=== PATIENT | female | born 1965 | race Caucasian/White ===

== ENCOUNTER 2021-03-14 23:37 | Emergency (ER) | payer OTHER ==
[~2021-03-14] VITALS: Ht 175.3 cm; Wt 98.0 kg
[2021-03-15 03:53] VITALS: BP 115/62
== END 2021-03-15 03:53 | disposition home or self-care (01) ==
LOC: M.ERS 23:37
DX: S63.642A Sprain of metacarpophalangeal joint of left thumb, initial encounter (principal); S92.902A Unspecified fracture of left foot, initial encounter for closed fracture; M25.512 Pain in left shoulder; M25.531 Pain in right wrist; M79.671 Pain in right foot; M79.672 Pain in left foot; M25.552 Pain in left hip; M79.7 Fibromyalgia; M54.5 Low back pain; F31.9 Bipolar disorder, unspecified; F41.9 Anxiety disorder, unspecified; E78.00 Pure hypercholesterolemia, unspecified; J45.909 Unspecified asthma, uncomplicated; Z88.8 Allergy status to other drugs, medicaments and biological substances; Z88.0 Allergy status to penicillin; Z88.2 Allergy status to sulfonamides; W10.8XXA Fall (on) (from) other stairs and steps, initial encounter; Y93.89 Activity, other specified; Y92.098 Other place in other non-institutional residence as the place of occurrence of the external cause; Y99.8 Other external cause status

== ENCOUNTER 2021-07-04 00:23 | Emergency (ER) | payer OTHER ==
[~2021-07-04] VITALS: Ht 172.7 cm; Wt 97.1 kg
[2021-07-04] MEDS ORDERED: MELOXICAM15 MG PO (03:28)
[2021-07-04] MEDS ORDERED: ACETAMINOPHEN-1 EAC2 PO (03:28)
[2021-07-04 03:36] VITALS: BP 110/68
== END 2021-07-04 03:36 | disposition home or self-care (01) ==
LOC: M.ERS 00:23
DX: M77.8 Other enthesopathies, not elsewhere classified (principal); Z20.822 Contact with and (suspected) exposure to COVID-19; R05 Cough; R07.89 Other chest pain